=== PATIENT | female | born 1980 | race Caucasian/White ===

== ENCOUNTER → 2018-04-21 16:45 | Outpatient (CLI) | payer OTHER | END | disposition home or self-care (01) | LOC: D.MAMMO 03-01 09:00 | DX: Z12.31 Encounter for screening mammogram for malignant neoplasm of breast (principal) ==

== ENCOUNTER → 2018-08-30 09:37 | Outpatient (CLI) | payer OTHER | END | disposition home or self-care (01) | LOC: D.CT 09:37 | DX: R51 Headache (principal) ==